=== PATIENT | female | born 1975 | race Caucasian/White ===

== ENCOUNTER 2020-11-07 11:38 | Emergency (ER) | payer OTHER ==
[~2020-11-07] VITALS: Ht 177.8 cm; Wt 99.8 kg
[2020-11-07] MEDS ORDERED: CRESTOR10 MG PO (11:56)
[2020-11-07] MEDS ORDERED: CALCIUM500 MG PO (11:56)
[2020-11-07] MEDS ORDERED: LEVO-T112 MCG PO (11:56)
[2020-11-07] MEDS ORDERED: BARIATRIC MV-I1 EACH PO (11:56)
[2020-11-07] MEDS ORDERED: OMEPRAZOLE40 MG PO (11:57)
[2020-11-07] MEDS ORDERED: SINGULAIR 10 MG10 MG PO (11:57)
[2020-11-07 12:32] LABS: ABSOLUTE BASOPHILS 0.1 thou/uL (0.0-0.2); ABSOLUTE EOSINOPHILS 0.2 thou/uL (0.0-0.7); ABSOLUTE LYMPHOCYTES 1.9 thou/uL (0.8-5.3); ABSOLUTE MONOCYTES 0.5 thou/uL (0.0-1.2); ABSOLUTE NEUTROPHILS 5.1 thou/uL (1.6-8.1); BASOPHILS 0.8 %; EOSINOPHILS 2.9 %; HEMATOCRIT 36.1 % (37.0-47.0); HEMOGLOBIN 12.1 gm/dL (12.0-15.0); LYMPHOCYTES 24.6 %; MCHC 33.6 g/dL (28.0-37.0); MCV 89.3 fL (80.0-100.0); MONOCYTES 5.9 %; MPV 6.9 fl. (7.2-11.1); NUCLEATED RBCS 0 /100WBC; PLATELET COUNT* 291 thou/uL (150-400); POLYS 65.8 %; RBC 4.05 mil/uL (4.20-5.00); RDW-CV 12.8 % (10.5-14.5); WBC 7.8 thou/uL (4.0-11.0)
[2020-11-07 12:42] LABS: CALCIUM 8.6 mg/dL (8.5-10.1); CREATININE 0.7 mg/dL (0.6-1.3)
[2020-11-07 12:46] LABS: ALBUMIN 3.2 g/dL (3.4-5.0); TOTAL BILIRUBIN 0.6 mg/dL (<0.1-1.0); TOTAL PROTEIN 6.5 g/dL (6.4-8.2)
[2020-11-07] MEDS ORDERED: NORCO5 PO (14:22)
[2020-11-07] MEDS ORDERED: FLEXERIL PO (14:22)
[2020-11-07] MEDS ORDERED: MEDROLDOSEPACK PO (14:22)
[2020-11-07 14:45] VITALS: BP 150/90
== END 2020-11-07 14:45 | disposition home or self-care (01) ==
LOC: M.ERS 11:38
PROVIDERS: Physician Assistant
DX: M54.2 Cervicalgia (principal); M54.6 Pain in thoracic spine; Z90.710 Acquired absence of both cervix and uterus; Z90.49 Acquired absence of other specified parts of digestive tract; Z88.0 Allergy status to penicillin; Z88.1 Allergy status to other antibiotic agents